=== PATIENT | female | born 1980 | race Caucasian/White ===

== ENCOUNTER 2017-10-22 02:11 | Emergency (ER) | payer BC ==
[~2017-10-22] VITALS: Ht 165.1 cm; Wt 75.3 kg
[2017-10-22 02:21] VITALS: BP 143/97
== END 2017-10-22 05:47 | disposition left against medical advice (07) ==
LOC: ER 02:12
DX: R51 Headache (principal); Z53.21 Procedure and treatment not carried out due to patient leaving prior to being seen by health care provider

== ENCOUNTER 2017-11-13 16:42 | Emergency (ER) | payer BC ==
[~2017-11-13] VITALS: Ht 165.1 cm; Wt 72.7 kg
[2017-11-13 21:31] VITALS: BP 133/71
== END 2017-11-13 21:35 | disposition home or self-care (01) ==
LOC: ER 16:42
DX: M79.602 Pain in left arm (principal); F17.200 Nicotine dependence, unspecified, uncomplicated
CPT/HCPCS: 93971; 99284